=== PATIENT | male | born 1960 | race African-American/Black ===

== ENCOUNTER 2024-07-14 21:57 | Emergency (ER) | payer SELFPAY ==
[~2024-07-14] VITALS: Ht 172.7 cm; Wt 90.7 kg
[2024-07-14 22:11] VITALS: BP 168/93; RESP 16; TEMP 98.7; O2SAT 97
[2024-07-14 22:12] VITALS: PULSE 77; O2SAT 98
[2024-07-15] MEDS ORDERED: TAMS-11 MT (01:42)
[2024-07-15 01:52] LABS: CLARITY URINE CLEAR (CLEAR); COLOR URINE YELLOW (YELLOW); GLUCOSE URINE NEGATIVE (NEGATIVE); KETONES URINE NEGATIVE (NEGATIVE); LEUKOCYTE ESTERASE URINE NEGATIVE (NEGATIVE); NITRITE URINE NEGATIVE (NEGATIVE); OCCULT BLOOD URINE 3+ (NEGATIVE); PROTEIN URINE 2+ (NEGATIVE); SPECIFIC GRAVITY URINE 1.009 (1.005-1.030); UROBILINOGEN URINE 0.2 E.U./dL (0.2-1.0)
[2024-07-15 03:12] LABS: RBC URINE 50-100 /hpf (0-2)
[2024-07-15 03:13] LABS: BACTERIA URINE NONE SEEN; SQUAMOUS EPITHELIAL CELL URINE NONE SEEN /lpf (RARE/1+); WBC URINE 0-2 /hpf (0-2)
== END 2024-07-15 01:49 | disposition home or self-care (01) ==
LOC: ER 21:57
DX: R33.9 Retention of urine, unspecified (principal); I10 Essential (primary) hypertension
CPT/HCPCS: 51702; 81003; 99284